=== PATIENT | male | born 1940 | race Caucasian/White ===

== ENCOUNTER 2021-09-26 17:33 | Inpatient (IN) | payer MEDICARE ==
[~2021-09-26] VITALS: Ht 170.2 cm; Wt 90.7 kg
[2021-09-26 18:12] LABS: HEMATOCRIT 24.4 % (36.7-47.1); MEAN CORPUSCULAR HEMOGLOBIN 31.3 uug (23.8-33.4); MEAN CORPUSCULAR VOLUME 89.7 fL (73.0-96.2); PLATELET COUNT (AUTO) 151 K/uL (152-348)
[2021-09-26 18:24] LABS: ALANINE AMINOTRANSFERASE 31 U/L (16-63); ALKALINE PHOSPHATASE 131 U/L (50-136); ASPARTATE AMINOTRANSFERASE 23 U/L (15-37); BILIRUBIN,TOTAL 0.8 mg/dL (0.2-1.0); CARBON DIOXIDE 28 mmol/L (21-32); CHLORIDE 125 mmol/L (98-107); CREATININE 1.7 mg/dL (0.6-1.3); GLUCOSE 92 mg/dL (74-106); POTASSIUM 3.2 mmol/L (3.5-5.1); TOTAL PROTEIN, SERUM 6.5 g/dL (6.4-8.2); UREA NITROGEN, BLOOD 45 mg/dL (7-18)
[2021-09-26] MEDS ORDERED: MAGNESIUM HYDROXIDE 30 ML LIQUID UDC PO PRN (18:45)
[2021-09-26] MEDS ORDERED: ACETAMINOPHEN 325 MG TABLET PO PRN (18:45)
[2021-09-26] MEDS ORDERED: IV NORMAL SALINE 1000 ML BAG IV ONE (18:45)
[2021-09-26] MEDS ORDERED: ONDANSETRON 4 MG/2 ML VIAL IV PRN (18:45)
--- NOTE | 2021-09-26 18:45 | NUR ---
Inserted nathan 16f nathan catheter using aseptic technique. Drained approximately 1500 ml dark, iced tea colored urine. about 15 minutes after insertion.
[2021-09-26 18:48] LABS: *BILIRUBIN,URIN 1+ (NEGATIVE); *BLOOD, URINE NEGATIVE (NEGATIVE); *CLARITY,URINE CLEAR (CLEAR); *COLOR,URINE DARK YELLOW (YELLOW); *KETONES,URINE NEGATIVE (NEGATIVE); *UROBILINOGEN,URINE 0.2 E.U./dl (NORMAL); LEUKOCYTE ESTERASE ,URINE NEGATIVE (NEGATIVE); NITRITE, URINE NEGATIVE (NEGATIVE); UGLUCOSE NEGATIVE (NEGATIVE)
[2021-09-26] MEDS ORDERED: GUAI-1197 PO (19:43)
[2021-09-26] MEDS ORDERED: FINA5TAB11 PO (19:43)
[2021-09-26] MEDS ORDERED: B CO1TAB6 PO (19:43)
[2021-09-26] MEDS ORDERED: ALLO100T56 PO (19:43)
[2021-09-26] MEDS ORDERED: CARV12.52 PO (19:43)
[2021-09-26] MEDS ORDERED: MULT-594 PO (19:43)
[2021-09-26] MEDS ORDERED: HYDR100T27 PO (19:43)
[2021-09-26] MEDS ORDERED: LOSA100T3 PO (19:43)
[2021-09-26] MEDS ORDERED: CLON0.2T PO (19:43)
[2021-09-26] MEDS ORDERED: FURO20TA4 PO (19:43)
[2021-09-26] MEDS ORDERED: ATOR40TA PO (19:43)
[2021-09-26] MEDS ORDERED: CLOP75TA15 PO (19:43)
[2021-09-26] MEDS ORDERED: ISOS20TA8 PO (19:43)
[2021-09-26] MEDS ORDERED: BISA10SU61 RC (19:43)
[2021-09-26] MEDS ORDERED: TRIA15CR2 TP (19:49)
[2021-09-26] MEDS ORDERED: TERA2CAP4 PO (19:49)
[2021-09-26] MEDS ORDERED: POTA10CA43 PO (19:49)
[2021-09-26] MEDS ORDERED: EPOE1VIA12 SQ (19:49)
[2021-09-26] MEDS ORDERED: NIAC500T2 PO (19:49)
[2021-09-26] MEDS ORDERED: AMLO10TA4 PO (19:49)
[2021-09-26] MEDS: ENOXAPARIN SODIUM 40 MG/0.4 ML DISP.SYRIN SQ SCH (21:00)
--- NOTE | 2021-09-26 21:25 | NUR ---
Patient to be scanned (CTA Brain, CT Neck w/o contrast) tomorrow morning. Per Phone call Kimberly Talbert. Patient to be hydrated via IV drip overnight to ease lab values to be able to do the CTA Brain. BUN 45 CRE 1.7 GFR 41
--- NOTE | 2021-09-26 21:25 | NUR ---
Report given to Oumar ROMANO
--- NOTE | 2021-09-26 21:29 | NUR ---
instructions via notes about CTA Brain and CT Neck w/o communicated to JUAN ANTONIO Chase by Telephone
[2021-09-26 22:00] VITALS: BP 170/60
--- NOTE | 2021-09-26 22:02 | NUR ---
PT TAKEN TO ROOM 312 VIA GOURNEY WITH ALL BELONGINGS.
[2021-09-26 22:13] VITALS: BP 170/60
--- NOTE | 2021-09-26 22:32 | NUR ---
Admitted patient to Tele unit from ER via carlos enrique Eng[facility] and hypernatremia under the care of CONNER Fajardo.Patient awake non verbal but able to follow simple commands.On RA, no resp distress. Iv on left wrist 22g infiltrated. Dc'D IV and inserted new IV line on right hand 22 g patent and intact.Adm. KCL 10 meQ IV as ordered no a/r noted.Morrell catheter in place noted with hematuria. N.P Scotty notified with order to hold lovenox for now.Notified CONNER Fajardo also for elevated BP with new order received . Hydralazine IV given .Patient NSR on tele. SAfety measures in place. Call light with in reach.Will continue to monitor.
[2021-09-26] MEDS: IV D5W 1000ML 1,000 ML IV PRN (22:37)
[2021-09-26] MEDS: POTASSIUM CHLORIDE 50 ML IV SCH ×3 (22:42→23:54)
[2021-09-26] MEDS: hydrALAZINE HCL 20 MG/1 ML VIAL IV PRN (23:15)
[2021-09-27] MEDS: POTASSIUM CHLORIDE 50 ML IV SCH ×4 (00:59→20:38)
[2021-09-27 04:00] VITALS: BP 176/60
[2021-09-27] MEDS: hydrALAZINE HCL 20 MG/1 ML VIAL IV PRN ×3 (04:57→21:34)
[2021-09-27 05:58] VITALS: BP 150/64
--- NOTE | 2021-09-27 06:18 | NUR ---
Patient slept well in no distress noted. BP elevated. Asymptomatic.Hydralazine IV 2x given. BP went down to 150/64.Iv intact on right hand with IVF infusing well. Remains NPO.NSR on Tele.All needs anticipated and met accordingly. Call light with in reach.
[2021-09-27 06:42] LABS: HEMATOCRIT 22.3 % (36.7-47.1); MEAN CORPUSCULAR HEMOGLOBIN 31.8 uug (23.8-33.4); MEAN CORPUSCULAR VOLUME 88.4 fL (73.0-96.2); PLATELET COUNT (AUTO) 135 K/uL (152-348)
[2021-09-27 06:54] LABS: CHOLESTEROL 138 mg/dL (<200); HDL CHOLESTEROL 33 mg/dL (40-60); TRIGLYCERIDES 148 MG/DL (30-150)
[2021-09-27 06:56] LABS: CARBON DIOXIDE 28 mmol/L (21-32); CHLORIDE 124 mmol/L (98-107); CREATININE 1.5 mg/dL (0.6-1.3); GLUCOSE 127 mg/dL (74-106); MAGNESIUM 2.9 mg/dL (1.8-2.4); PHOSPHOROUS 3.7 mg/dL (2.5-4.9); POTASSIUM 3.2 mmol/L (3.5-5.1); UREA NITROGEN, BLOOD 39 mg/dL (7-18)
--- NOTE | 2021-09-27 07:22 | NUR ---
Received NA 160 result and notified Prosper Fajardo.Endorsed to morning shift.
--- NOTE | 2021-09-27 07:30 | NUR ---
Awake, confused, non verbal, pulled out saline lock, telemetry, disrobing. Reoriented, redirected, repositioned comfortably. Bed alarm on. NPO maintained
[2021-09-27] MEDS ORDERED: POTASSIUM CHLORIDE 50 ML IV SCH (09:15)
[2021-09-27] MEDS: HALOPERIDOL LACTATE 5 MG/1 ML VIAL IM PRN ×2 (09:35→18:28)
--- NOTE | 2021-09-27 09:35 | NUR ---
Continued to be agitated, restless, climbing out of bed, disrobing. Haldol IM given as ordered.
[2021-09-27 11:37] VITALS: BP 136/61
[2021-09-27 12:22] LABS: *BILIRUBIN,URIN 1+ (NEGATIVE); *BLOOD, URINE 3+ (NEGATIVE); *CLARITY,URINE TURBID (CLEAR); *COLOR,URINE RED (YELLOW); *KETONES,URINE TRACE (NEGATIVE); LEUKOCYTE ESTERASE ,URINE NEGATIVE (NEGATIVE); NITRITE, URINE NEGATIVE (NEGATIVE); PH,URINE 5.5 (5.0-8.0); UGLUCOSE NEGATIVE (NEGATIVE)
[2021-09-27] MEDS: ISOSORBIDE DINITRATE 20 MG TABLET PO SCH ×2 (13:00→16:59)
[2021-09-27] MEDS: CLONIDINE HCL 0.2 MG TABLET PO SCH ×2 (13:27→21:27)
--- NOTE | 2021-09-27 13:35 | NUR ---
Calm and resting comfortably, after bed bath. ST eval done, not safe with po, maintained on NPO.
[2021-09-27 14:35] LABS: *CREATININE,URINE 86.1 mg/dL (30-125); *URINE TOTAL PROTEIN RANDOM 313.5 mg/dL (<150/24HR)
[2021-09-27 15:12] VITALS: BP 166/62
--- NOTE | 2021-09-27 16:10 | NUR ---
Midline not placed. Attempted again peripheral line to Right hand. BP elevated, Hydralazine IV given as ordered. KCL iv started as ordered
[2021-09-27] MEDS: CARVEDILOL 12.5 MG TABLET PO SCH (17:00)
[2021-09-27 17:25] LABS: BACTERIA,URINE NONE SEEN /HPF (NONE SEEN); RBC,URINE TNTC /HPF (0-3); SQUAMOUS EPITHELIAL CELL,UR FEW /HPF (NONE SEEN); WBC,URINE 0-3 /HPF (0-3)
--- NOTE | 2021-09-27 18:30 | NUR ---
Restless, agitated, disrobing, climbing out of bed. Haldol PRN given. Repositioned comfortably in bed.
[2021-09-27 20:07] VITALS: BP 167/71
[2021-09-27] MEDS: ENOXAPARIN SODIUM 40 MG/0.4 ML DISP.SYRIN SQ SCH (20:28)
[2021-09-27] MEDS: ATORVASTATIN 40 MG TABLET PO SCH (20:48)
--- NOTE | 2021-09-27 21:48 | NUR ---
Received resident asleep on bed with no respiratory distress noted, easily arousable for care. and daughter at bedside. Pt on NPO, explained to family and verbalized understanding. Started last bag of KCl on R hand, patent and intact. Still for midline. Assisted pt in turning and repositioning. Oral care provided. FC still draining with dark reddish urine. No s/sx of pain and discomfort noted. All needs attended. Call light placed within reach. Will continue to monitor.
[2021-09-27] MEDS: IV D5W 1000ML 1,000 ML IV PRN (22:26)
[2021-09-28 00:05] VITALS: BP 117/54
[2021-09-28 04:05] VITALS: BP 129/62
[2021-09-28] MEDS: CLONIDINE HCL 0.2 MG TABLET PO SCH ×3 (05:55→21:12)
--- NOTE | 2021-09-28 06:25 | NUR ---
Pt slept intermittently throughout the night, easily arousable for care, non-verbal. IV access on R hand and JESSIE midline, patent and intact. DC Tele. All needs attended. Call light placed within reach. Will endorse to next shift.
[2021-09-28 07:01] LABS: MEAN CORPUSCULAR HEMOGLOBIN 32.2 uug (23.8-33.4); MEAN CORPUSCULAR VOLUME 89.1 fL (73.0-96.2); PLATELET COUNT (AUTO) 137 K/uL (152-348)
[2021-09-28 07:15] LABS: HEMATOCRIT 20.9 % (36.7-47.1)
[2021-09-28 07:20] LABS: ALANINE AMINOTRANSFERASE 26 U/L (16-63); ALKALINE PHOSPHATASE 118 U/L (50-136); ASPARTATE AMINOTRANSFERASE 18 U/L (15-37); BILIRUBIN,TOTAL 0.7 mg/dL (0.2-1.0); CARBON DIOXIDE 28 mmol/L (21-32); CHLORIDE 123 mmol/L (98-107); CREATINE KINASE, TOTAL 67 U/L (39-308); CREATININE 1.5 mg/dL (0.6-1.3); GLUCOSE 121 mg/dL (74-106); MAGNESIUM 2.4 mg/dL (1.8-2.4); PHOSPHOROUS 3.1 mg/dL (2.5-4.9); TOTAL PROTEIN, SERUM 5.7 g/dL (6.4-8.2); UREA NITROGEN, BLOOD 31 mg/dL (7-18)
[2021-09-28] MEDS: CARVEDILOL 12.5 MG TABLET PO SCH ×2 (08:28→18:00)
[2021-09-28] MEDS: ISOSORBIDE DINITRATE 20 MG TABLET PO SCH ×3 (08:28→17:00)
[2021-09-28] MEDS: ALLOPURINOL 100 MG TABLET PO SCH (08:28)
[2021-09-28] MEDS: FINASTERIDE 5 MG TABLET PO SCH (08:28)
[2021-09-28] MEDS: AMLODIPINE 10 MG TABLET PO SCH (08:29)
[2021-09-28] MEDS: HALOPERIDOL LACTATE 5 MG/1 ML VIAL IM PRN (08:29)
[2021-09-28] MEDS ORDERED: POTASSIUM CHLORIDE 10 MEQ TAB.PRT.SR PO ONE (09:15)
[2021-09-28] MEDS ORDERED: PROPOFOL 200 MG/20 ML BOTTLE ONE (10:02)
[2021-09-28] MEDS ORDERED: CEFAZOLIN 1 G VIAL ONE ×2 (10:02)
[2021-09-28 11:04] VITALS: BP 144/42
[2021-09-28 11:30] VITALS: BP 141/72
[2021-09-28] MEDS ORDERED: POTASSIUM CHLORIDE 20 MEQ TAB.PRT.SR PO ONE (12:00)
[2021-09-28 15:30] VITALS: BP 137/80
[2021-09-28] MEDS: IV D5W 1000ML 1,000 ML IV PRN (18:06)
--- NOTE | 2021-09-28 19:00 | NUR ---
Received on bed, with the at the bedside, not in labored breathing, alert, no clear verbal response, aphasic. Safety precautions provided. On NPO.
[2021-09-28] MEDS ORDERED: BISACODYL 10 MG SUPP.RECT RC PRN (19:15)
[2021-09-28 20:37] VITALS: BP 162/59
[2021-09-28] MEDS: ATORVASTATIN 40 MG TABLET PO SCH (21:00)
[2021-09-28] MEDS: ENOXAPARIN SODIUM 40 MG/0.4 ML DISP.SYRIN SQ SCH (21:08)
--- NOTE | 2021-09-29 03:30 | NUR ---
for EGD with PEG tube insertion. Seen by anesthesiologist yesterday with order to keep potassium level above 3. Informed Dr Gaxiola, with order Potassium 40mEq IV, carried out and given as ordered (4 bags 10meq/bag). To check labs in the morning.
[2021-09-29] MEDS: POTASSIUM CHLORIDE 50 ML IV SCH ×6 (03:40→11:51)
[2021-09-29 04:32] VITALS: BP 123/63
[2021-09-29] MEDS: CLONIDINE HCL 0.2 MG TABLET PO SCH ×3 (06:00→22:00)
--- NOTE | 2021-09-29 06:08 | NUR ---
Clonidine not given patient on NPO, HR- 60/min
--- NOTE | 2021-09-29 06:30 | NUR ---
Last bag of potassium still ongoing, endorsed to morning shift.
--- NOTE | 2021-09-29 06:37 | NUR ---
Patient slept well within the shift, no signs distress noted, Suppository was given as ordered, no bowel movement at this time. For Possible PEG tube insertion today. Patient in fair condition.
--- NOTE | 2021-09-29 07:00 | NUR ---
Called patient`s daughter Karla Vital, phone number [phone] and patient`s phone number [phone]. No answer, leave a message to call back the unit regarding the consent for the PEG tube insertion will be done at 0900 and the anesthesiologist will call by 0830 for the consent .
[2021-09-29 07:05] LABS: MEAN CORPUSCULAR HEMOGLOBIN 31.8 uug (23.8-33.4); MEAN CORPUSCULAR VOLUME 88.5 fL (73.0-96.2); PLATELET COUNT (AUTO) 114 K/uL (152-348)
[2021-09-29 07:21] LABS: HEMATOCRIT 19.2 % (36.7-47.1)
[2021-09-29 07:25] LABS: NEUTROPHILS % (MANUAL) 0 % (42-75)
[2021-09-29 08:12] LABS: CREATININE 1.3 mg/dL (0.6-1.3); MAGNESIUM 2.3 mg/dL (1.8-2.4); PHOSPHOROUS 3.5 mg/dL (2.5-4.9); POTASSIUM 3.4 mmol/L (3.5-5.1)
[2021-09-29] MEDS ORDERED: hydrALAZINE HCL 20 MG/1 ML VIAL ONE (10:00)
[2021-09-29] MEDS: ALLOPURINOL 100 MG TABLET PO SCH (11:48)
[2021-09-29] MEDS: ISOSORBIDE DINITRATE 20 MG TABLET PO SCH ×3 (11:48→17:00)
[2021-09-29] MEDS: FINASTERIDE 5 MG TABLET PO SCH (11:48)
[2021-09-29] MEDS: CARVEDILOL 12.5 MG TABLET PO SCH ×2 (11:49→18:00)
[2021-09-29] MEDS: AMLODIPINE 10 MG TABLET PO SCH (11:49)
[2021-09-29 12:00] VITALS: BP 133/65
--- NOTE | 2021-09-29 12:20 | NUR ---
returned back from surgery with new peg in place with abd binder. resume previous orders. ok to give meds via gt start formula in the am. gt sit intact
[2021-09-29 16:00] VITALS: BP 101/41
--- NOTE | 2021-09-29 20:00 | NUR ---
Received patient in bed asleep, but arousable, hob elevated, abdominal binder in place, GT in place patent. Patient on iv hydration, no feeding at this time, cont to monitor, will medicate for pain as needed. cont to monitor.
[2021-09-29] MEDS: ATORVASTATIN 40 MG TABLET PO SCH (20:41)
[2021-09-29] MEDS: ENOXAPARIN SODIUM 40 MG/0.4 ML DISP.SYRIN SQ SCH (20:42)
[2021-09-29] MEDS: IV D5W 1000ML 1,000 ML IV PRN (22:00)
--- NOTE | 2021-09-29 22:00 | NUR ---
Blood transfusion not done at this time due to no available staff to release the blood, per lab staff, RN cigar making machine supervisor aware.
[2021-09-29 22:33] VITALS: BP 100/45
[2021-09-30] VITALS (11 sets, daily range): BP systolic 115–134; BP diastolic 40–86
--- NOTE | 2021-09-30 02:29 | NUR ---
Patient moving his left hand multiple attempts on removing abdominal binder, reorient patient but not effective, attend all need, with order to place hand mittens on left hand to prevent on pulling out abdominal then the new PEG. cont to monitor.
[2021-09-30] MEDS: CLONIDINE HCL 0.2 MG TABLET PO SCH ×2 (06:00→14:14)
--- NOTE | 2021-09-30 06:11 | NUR ---
Patient eyes close but response to tactile and painful stimuli, turn and reposition, noted with 200cc urine in with dark johnnie color, abdomen soft to touch. mittens in place, check for placement and circulations, GT intact, no bleeding noted, abdominal binder in place, cont to monitor.
[2021-09-30 07:14] LABS: MEAN CORPUSCULAR HEMOGLOBIN 31.8 uug (23.8-33.4); MEAN CORPUSCULAR VOLUME 88.1 fL (73.0-96.2); PLATELET COUNT (AUTO) 120 K/uL (152-348)
[2021-09-30 07:28] LABS: CREATININE 1.2 mg/dL (0.6-1.3); MAGNESIUM 2.1 mg/dL (1.8-2.4); PHOSPHOROUS 3.3 mg/dL (2.5-4.9)
[2021-09-30 08:05] LABS: HEMATOCRIT 18.7 % (36.7-47.1)
[2021-09-30] MEDS: ALLOPURINOL 100 MG TABLET PO SCH (08:33)
[2021-09-30] MEDS: FINASTERIDE 5 MG TABLET PO SCH (08:33)
[2021-09-30] MEDS: CARVEDILOL 12.5 MG TABLET PO SCH (08:34)
[2021-09-30] MEDS: ISOSORBIDE DINITRATE 20 MG TABLET PO SCH ×2 (08:34→14:14)
[2021-09-30] MEDS: AMLODIPINE 10 MG TABLET PO SCH (08:34)
[2021-09-30] MEDS ORDERED: POTASSIUM CHLORIDE 50 ML IV SCH (10:00)
[2021-09-30] MEDS: IV D5W 1000ML 1,000 ML IV PRN (10:23)
[2021-09-30] MEDS ORDERED: POTASSIUM CHLORIDE 20 MEQ POWDER PACKET PO ONE (11:00)
[2021-09-30] MEDS ORDERED: POTASSIUM CHLORIDE 20 MEQ POWDER PACKET GT ONE (11:00)
--- NOTE | 2021-09-30 11:00 | NUR ---
noted with iv right hand infiltrated. iv midline on hali also unable to be flushed. both iv lines removed. able to insert 20g on left wrist. 2nd bag of potassium infusing, per food counter attendant beth she will dc iv potassium to replace via gtube. pharmacy aware.
--- NOTE | 2021-09-30 11:58 | NUR ---
started blood transfusion, vs prior to transfusion noted. monitored for 15 minutes no ss of adverse reactions noted. hob kept elevated. no ss of pain or sob noted. cont to monitor.
--- NOTE | 2021-09-30 15:17 | NUR ---
alert but non verbal not oriented withdraws to pain. no ss of sob or pain at this time. nathan catheter with johnnie colored urine. peg tube intact and patent no residual. mittens on for pulling on lines and tubes, reoriented prn. abdominal binder on due to pulling tubes. iv is intact. changed and repositioned. needs attended. call light in reach.
[2021-09-30] MEDS ORDERED: MAGNESIUM HYDROXIDE 30 ML LIQUID UDC GT PRN (17:32)
[2021-09-30] MEDS ORDERED: AMLODIPINE 10 MG TABLET GT SCH (17:32)
[2021-09-30] MEDS: CARVEDILOL 12.5 MG TABLET GT SCH (17:34)
[2021-09-30] MEDS: JEVITY 1.2 1000 ML LIQUID GT PRN (17:36)
--- NOTE | 2021-09-30 19:08 | NUR ---
started on tube feeding jevity at 20cc/hr. hob kept elevated for aspiration precaution. no nausea vomiting or diarrhea noted. spoke with dtr ladi earlier this afternoon and was updated.
[2021-09-30] MEDS: ATORVASTATIN 40 MG TABLET GT SCH (20:46)
[2021-09-30] MEDS: ENOXAPARIN SODIUM 40 MG/0.4 ML DISP.SYRIN SQ SCH (20:47)
[2021-09-30] MEDS: CLONIDINE HCL 0.2 MG TABLET GT SCH (22:00)
[2021-10-01] MEDS: IV D5W 1000ML 1,000 ML IV PRN (03:14)
--- NOTE | 2021-10-01 04:06 | NUR ---
s/p PEG placement. No residual. No nausea or vomiting. Increased GTF rate to 30 ml/hr. Goal is 70ml/hr. Will continue to monitor residual.
[2021-10-01 04:18] VITALS: BP 150/68
[2021-10-01 06:13] LABS: HEMATOCRIT 22.8 % (36.7-47.1); MEAN CORPUSCULAR HEMOGLOBIN 31.4 uug (23.8-33.4); MEAN CORPUSCULAR VOLUME 87.8 fL (73.0-96.2); PLATELET COUNT (AUTO) 130 K/uL (152-348)
[2021-10-01] MEDS: CLONIDINE HCL 0.2 MG TABLET GT SCH ×2 (06:14→15:11)
[2021-10-01 06:31] LABS: CREATININE 1.1 mg/dL (0.6-1.3); MAGNESIUM 2.1 mg/dL (1.8-2.4); PHOSPHOROUS 3.1 mg/dL (2.5-4.9); POTASSIUM 3.4 mmol/L (3.5-5.1)
[2021-10-01] MEDS: IV D5LR 1,000 ML IV PRN ×2 (07:56→18:44)
[2021-10-01] MEDS: CARVEDILOL 12.5 MG TABLET GT SCH ×2 (08:27→18:36)
[2021-10-01] MEDS: ISOSORBIDE DINITRATE 20 MG TABLET GT SCH ×3 (08:27→16:53)
[2021-10-01] MEDS: ALLOPURINOL 100 MG TABLET GT SCH (08:27)
[2021-10-01] MEDS ORDERED: DOXAZOSIN 1 MG TABLET GT SCH (09:00)
[2021-10-01] MEDS ORDERED: POTASSIUM CHLORIDE 20 MEQ TAB.PRT.SR PO ONE (09:30)
[2021-10-01] MEDS ORDERED: POTASSIUM CHLORIDE 20 MEQ POWDER PACKET GT ONE (10:00)
[2021-10-01 10:06] LABS: ALBUMIN 2.5 g/dL (2.9-4.4); ALPHA-1-GLOBULIN 0.3 g/dL (0.0-0.4); ALPHA-2-GLOBULIN 0.7 g/dL (0.4-1.0); BETA GLOBULIN 0.7 g/dL (0.7-1.3); GLOBULIN, TOTAL 2.6 g/dL (2.2-3.9); M-SPIKE Not Observed g/dL (Not Observed)
--- NOTE | 2021-10-01 10:55 | NUR ---
awake, non verbal not oriented. comfortable on room air. gt intact and patent no residual noted. received on jevity 35 cc/hr tolerated. no episodes of nvd noted. due meds given and tolerated. abdominal binder and mittens on due to pulling. reoriented prn. needs attended. safety measures on. kept comfortable.
[2021-10-01 11:57] VITALS: BP 134/56
--- NOTE | 2021-10-01 12:52 | NUR ---
at 1130 increased gt feeding to 45cc/hr. at this time patient is tolerating the feeding no nausea or vomiting. hob kept elevated for aspiration precautions. he is comfortably resting.
[2021-10-01 16:06] VITALS: BP 104/51
--- NOTE | 2021-10-01 18:44 | NUR ---
received order from rita campos to remove nathan catheter and make sure patient voids within 6 hrs and let her know. order is carried out.
--- NOTE | 2021-10-01 18:58 | NUR ---
removed nathan catheter tolerated well no bleeding noted. output today is 1100. will endorsed to oncoming shift. Addendum: 10/01/21 at 1859 by DON EAST RN family at bedside and aware. no complaints at this time
[2021-10-01] MEDS ORDERED: BISACODYL 10 MG SUPP.RECT RC ONE (19:15)
--- NOTE | 2021-10-01 19:30 | NUR ---
Received pt awake . Family at bedside. Pt in no acute distress. Gtube feeding tolerating. Pt observed with phlegm and can't cough it out. Safety and comfort provided. Will continue to monitor.
--- NOTE | 2021-10-01 20:00 | NUR ---
Notify rhinestone setter regarding pt has phlegm. ordered Robitussin Plain sugar free 200mg po q6hprn.
[2021-10-01] MEDS: ATORVASTATIN 40 MG TABLET GT SCH (20:29)
[2021-10-01] MEDS: ENOXAPARIN SODIUM 40 MG/0.4 ML DISP.SYRIN SQ SCH (20:30)
[2021-10-01] MEDS: CLOPIDOGREL 75 MG TABLET PO SCH (20:30)
[2021-10-01] MEDS: GUAIFENESIN SUGAR FREE 100 MG/5 ML UDC PO PRN (20:35)
[2021-10-01 20:50] VITALS: BP 128/63
[2021-10-01] MEDS: TERAZOSIN 1 MG CAPSULE GT SCH (22:18)
[2021-10-02] MEDS: ACETAMINOPHEN 325 MG TABLET GT PRN ×2 (00:07→21:23)
[2021-10-02] MEDS: HALOPERIDOL LACTATE 5 MG/1 ML VIAL IM PRN (00:10)
--- NOTE | 2021-10-02 00:10 | NUR ---
At 0010H pt given Haldol Inj 0.5mg prn because of anxiety, restlessness, trying to take off his mitten. Safety and comfort provided. Will continue to monitor.
--- NOTE | 2021-10-02 02:01 | NUR ---
At 0200H Pt vomited when we tried to repositioned the pt. Make sure pt head of the bed elevated. Hold the gtube feeding . Vital signs taken. Pt in no acute distress. Safety and comfort provided. Will continue to monitor.
[2021-10-02 02:03] VITALS: BP 120/75
--- NOTE | 2021-10-02 02:22 | NUR ---
Zofran inj 4mg prn given at 0209H for emesis one time. Pt tolerated it well. Will continue to monitor.
[2021-10-02 04:10] VITALS: BP 136/60
--- NOTE | 2021-10-02 05:46 | NUR ---
Pt slept intermittently. Pt in no acute distress. Iv intact. Prescribed medication given and pt tolerated it well. Pt gtube feeding held because pt vomited. After Zofran medication given pt not vomited anymore. Pt bladder scan is more than 248ml. Safety and comfort provided. All needs are met.Will endorse to incoming nurse for continuity of care.
[2021-10-02 06:17] LABS: HEMATOCRIT 21.3 % (36.7-47.1); MEAN CORPUSCULAR HEMOGLOBIN 31.5 uug (23.8-33.4); MEAN CORPUSCULAR VOLUME 87.3 fL (73.0-96.2); PLATELET COUNT (AUTO) 133 K/uL (152-348)
[2021-10-02 06:30] LABS: CREATININE 1.1 mg/dL (0.6-1.3); PHOSPHOROUS 3.1 mg/dL (2.5-4.9)
[2021-10-02 07:05] LABS: POTASSIUM 3.6 mmol/L (3.5-5.1)
--- NOTE | 2021-10-02 08:06 | NUR ---
Endorsed by RN patient did not void, condom cath intact with no output. Patient alert, trying to talk pulling on mittens. Hob elevated. Intermittent cough with phlegm unable to expectorate. No nausea or vomiting noted. No pain or sob noted. Bladder scan performed noted 460ml. Inserted nathan catheter got output 325ml at this time. Restarted tube feeding at 40ml/hr. Kept comfortable. Safety measures in place. Will cont to monitor for tolerance. CONNER Quinn is aware.
[2021-10-02] MEDS: ALLOPURINOL 100 MG TABLET GT SCH (08:12)
[2021-10-02] MEDS: CARVEDILOL 12.5 MG TABLET GT SCH ×2 (08:13→17:39)
[2021-10-02] MEDS: CLOPIDOGREL 75 MG TABLET PO SCH (08:13)
[2021-10-02] MEDS ORDERED: EPOETIN ALFA-EPBX 10,000 UNIT/ML VIAL SQ SCH (09:00)
[2021-10-02 11:47] VITALS: BP 156/64
[2021-10-02 14:49] LABS: IRON, SERUM 29 ug/dL (50-175)
[2021-10-02 15:02] LABS: FERRITIN 345 ng/mL (26-388)
--- NOTE | 2021-10-02 15:54 | NUR ---
informed sap basis administrator martinez patient's nathan catheter noted with hematuria new order for ua received. obtained urine and sent to lab.
[2021-10-02 16:15] LABS: *BILIRUBIN,URIN 1+ (NEGATIVE); *BLOOD, URINE 3+ (NEGATIVE); *CLARITY,URINE CLEAR (CLEAR); *COLOR,URINE YELLOW (YELLOW); *KETONES,URINE NEGATIVE (NEGATIVE); LEUKOCYTE ESTERASE ,URINE 1+ (NEGATIVE); NITRITE, URINE NEGATIVE (NEGATIVE); PH,URINE 5.5 (5.0-8.0); UGLUCOSE NEGATIVE (NEGATIVE)
[2021-10-02 16:51] VITALS: BP 133/55
--- NOTE | 2021-10-02 18:29 | NUR ---
awake, agitated at times pulling on tubes. mittens in place, patient tries to remove it. reoriented prn. no ss of pain or sob noted. no episodes of vomiting this shift. remains on 40cc/hr jevity 1.2 tf. hob kept elevated. needs attended.
--- NOTE | 2021-10-02 19:30 | NUR ---
Received pt in no acute distress. Pt iv intact. Morrell catheter intact. Pt had mitten and trying to take off his mitten. Safety and comfort provided. Will continue to monitor.
[2021-10-02 19:59] LABS: BACTERIA,URINE FEW /HPF (NONE SEEN); RBC,URINE TNTC /HPF (0-3)
[2021-10-02 20:00] LABS: SQUAMOUS EPITHELIAL CELL,UR NONE SEEN /HPF (NONE SEEN)
[2021-10-02 20:51] VITALS: BP 146/67
[2021-10-02] MEDS: ENOXAPARIN SODIUM 40 MG/0.4 ML DISP.SYRIN SQ SCH (21:00)
[2021-10-02] MEDS: ATORVASTATIN 40 MG TABLET GT SCH (21:00)
[2021-10-02] MEDS ORDERED: ALBUTEROL SULFATE 1.25 MG/3 ML NEBU NEB PRN (21:00)
[2021-10-02] MEDS: TERAZOSIN 1 MG CAPSULE GT SCH (21:01)
--- NOTE | 2021-10-02 21:02 | NUR ---
as per DR. Finch hold dose of LOvenox.
[2021-10-02] MEDS: GUAIFENESIN SUGAR FREE 100 MG/5 ML UDC PO PRN (21:23)
[2021-10-02 22:02] LABS: *OCCULT BLOOD STOOL NEGATIVE (NEGATIVE)
[2021-10-03 04:44] VITALS: BP 151/60
--- NOTE | 2021-10-03 06:04 | NUR ---
Pt slept intermittently. Pt Prescribed medication given and pt tolerated it well. Pt tolerating gtube feeding. No residual noted. Pt observed coughing and felt better after breathing treatment . Iv intact. Morrell intact and draining tea colored urine. Pt had 2 bowel movement. Safety and comfort provided . All needs are met. Will endorse to incoming nurse for continuity of care.
[2021-10-03 06:29] LABS: MEAN CORPUSCULAR HEMOGLOBIN 31.9 uug (23.8-33.4); MEAN CORPUSCULAR VOLUME 88.6 fL (73.0-96.2); PLATELET COUNT (AUTO) 130 K/uL (152-348)
[2021-10-03 06:51] LABS: CREATININE 1.1 mg/dL (0.6-1.3); MAGNESIUM 1.9 mg/dL (1.8-2.4); POTASSIUM 3.7 mmol/L (3.5-5.1)
[2021-10-03 07:09] LABS: THYROID STIMULATING HORMONE 4.5 mIU/mL (0.358-3.740)
[2021-10-03] MEDS: CARVEDILOL 12.5 MG TABLET GT SCH ×2 (09:03→17:38)
[2021-10-03] MEDS: CLOPIDOGREL 75 MG TABLET PO SCH (09:03)
[2021-10-03] MEDS: ALLOPURINOL 100 MG TABLET GT SCH (09:03)
[2021-10-03 09:05] VITALS: BP 160/59
[2021-10-03 11:18] VITALS: BP 152/59
[2021-10-03 15:48] VITALS: BP 144/55
[2021-10-03] MEDS ORDERED: AMLODIPINE 5 MG TABLET PO SCH (17:00)
--- NOTE | 2021-10-03 18:45 | NUR ---
Pt had no acute events during shift. Family at bedside for most of shift, refused for feeding to be increased due to pt having nausea/vomiting previous night. Tolerated feeding well during shift, no nausea vomiting and no residual volume. Pt continues to have hematuria, stool OB was negative. MD aware. Per MD possible discharge tomorrow if family agreeable and facility accepts. Will endorse to night cleaner.
--- NOTE | 2021-10-03 19:30 | NUR ---
Received pt in no acute distress. Iv intact. Morrell catheter intact draining hematuria.Tolerating gtube feeding at 50ml/hr. No residual. Safety and comfort provided, Will continue to monitor.
[2021-10-03 20:00] VITALS: BP 174/69
--- NOTE | 2021-10-03 20:43 | NUR ---
Hold Lovenox as per Dr. Finch.
[2021-10-03] MEDS ORDERED: TAMSULOSIN HCL 0.4 MG CAP.SR.24H PO SCH (21:00)
[2021-10-03] MEDS: ENOXAPARIN SODIUM 40 MG/0.4 ML DISP.SYRIN SQ SCH (21:00)
[2021-10-03] MEDS: AMLODIPINE 5 MG TABLET PO SCH (21:09)
[2021-10-03] MEDS: ATORVASTATIN 40 MG TABLET GT SCH (21:09)
[2021-10-03] MEDS: GUAIFENESIN SUGAR FREE 100 MG/5 ML UDC PO PRN (21:16)
[2021-10-03] MEDS: ACETAMINOPHEN 325 MG TABLET GT PRN (21:16)
[2021-10-03] MEDS: TERAZOSIN 1 MG CAPSULE GT SCH (21:18)
--- NOTE | 2021-10-03 22:12 | NUR ---
Called family of pt [phone] and talked to pt as they are requesting for update. Pt in no acute distress. Relay the update that pt is in no acute distress.
--- NOTE | 2021-10-03 22:19 | NUR ---
Tylenol 650 mg prn given to pt and Robitussin plain sugar free prn given per nurses assessment pt needed it. Pt tolerated it well. Will continue to monitor.
[2021-10-04 04:00] VITALS: BP 147/62
[2021-10-04] MEDS: JEVITY 1.2 1000 ML LIQUID GT PRN (04:21)
--- NOTE | 2021-10-04 06:10 | NUR ---
Pt slept intermittently. Pt in no acute distress. IV intact and patent.Pt turned and repositioned. Pt tolerating gtube feeding at 55ml/hr. No residual noted. Morrell intact and draining well. Safety and comfort provided. All needs are met. Vital signs within normal limit. Will endorse to incoming nurse for continuity of care.
[2021-10-04 07:45] LABS: HEMATOCRIT 22.7 % (36.7-47.1); MEAN CORPUSCULAR HEMOGLOBIN 31.9 uug (23.8-33.4); MEAN CORPUSCULAR VOLUME 88.1 fL (73.0-96.2); PLATELET COUNT (AUTO) 148 K/uL (152-348)
[2021-10-04 07:57] LABS: POTASSIUM 3.3 mmol/L (3.5-5.1)
[2021-10-04] MEDS: AMLODIPINE 5 MG TABLET PO SCH ×2 (08:43→21:03)
[2021-10-04] MEDS: CARVEDILOL 12.5 MG TABLET GT SCH ×2 (08:44→17:15)
[2021-10-04] MEDS: ALLOPURINOL 100 MG TABLET GT SCH (08:44)
[2021-10-04] MEDS: CLOPIDOGREL 75 MG TABLET GT SCH (08:44)
[2021-10-04] MEDS ORDERED: POTASSIUM CHLORIDE 20 MEQ POWDER PACKET GT ONE (09:30)
[2021-10-04 09:51] LABS: BILIRUBIN,DIRECT 0.2 mg/dL (0.0-0.2); BILIRUBIN,TOTAL 0.3 mg/dL (0.2-1.0); TOTAL PROTEIN, SERUM 5.3 g/dL (6.4-8.2)
[2021-10-04] MEDS: GUAIFENESIN SUGAR FREE 100 MG/5 ML UDC PO PRN (10:26)
--- NOTE | 2021-10-04 10:52 | NUR ---
Pt is cooperative with care, sleeping intermittently. Administered PRN cough medication due to pt having cough. Able to spit up some mucus to clear airway. Will continue to monitor.
[2021-10-04 11:39] VITALS: BP 152/62
--- NOTE | 2021-10-04 18:00 | NUR ---
Pt had elevated BP 172/69, HR 78, administered scheduled coreg. Notified MD of elevated BP, obtained order for hydralazine 10 mg PRN IVP for SBP >160. Will reassess before administering.
[2021-10-04 18:06] VITALS: BP 169/64
[2021-10-04] MEDS ORDERED: hydrALAZINE HCL 20 MG/1 ML VIAL IV PRN (18:45)
--- NOTE | 2021-10-04 19:00 | NUR ---
Reassessed patient, BP now 145/64 HR 71. No longer meets criteria for hydralazine, pt is sleeping in bed, comfort measures provided. Will endorse to night stocker and notify of vitals.
[2021-10-04 20:00] VITALS: BP 120/64
[2021-10-04] MEDS: ENOXAPARIN SODIUM 40 MG/0.4 ML DISP.SYRIN SQ SCH (21:00)
--- NOTE | 2021-10-04 21:00 | NUR ---
Received pt in bed. Awake, alert x 1. On room air, saturating at 94%. with mittens on Left hand and on chest binder. Gtube in place. Gtube clean and dry. Aspiration precaution maintained. HOB elevated at all times. Morrell catheter in place with hematuria. Safety measure placed. Call light within reach. Will continue to monitor.
[2021-10-04] MEDS: ATORVASTATIN 40 MG TABLET GT SCH (21:01)
[2021-10-04] MEDS: TERAZOSIN 1 MG CAPSULE GT SCH (21:02)
[2021-10-04] MEDS: ACETAMINOPHEN 325 MG TABLET GT PRN (21:10)
[2021-10-05] MEDS: JEVITY 1.2 1000 ML LIQUID GT PRN (03:35)
--- NOTE | 2021-10-05 03:35 | NUR ---
PT SLEEPING COMFORTABLY. MO CATH DRAINING WELL. URINE STILL RED IN COLOR. GTUBE INTACT. CHANGED GTUBE DRESSING. ABLE TO TOLERATE FEEDING AT 55 ML/HR, INCREASED FEEDING RATE TO 65 ML/HR MD ORDERED. WILL CONTINUE TO MONITOR.
[2021-10-05 04:00] VITALS: BP 140/60
[2021-10-05 06:32] LABS: CREATININE 0.9 mg/dL (0.6-1.3); POTASSIUM 3.7 mmol/L (3.5-5.1)
[2021-10-05] MEDS: CLOPIDOGREL 75 MG TABLET GT SCH (09:17)
[2021-10-05] MEDS: CARVEDILOL 12.5 MG TABLET GT SCH (09:18)
[2021-10-05] MEDS: AMLODIPINE 5 MG TABLET PO SCH (09:18)
[2021-10-05] MEDS: ALLOPURINOL 100 MG TABLET GT SCH (09:18)
--- NOTE | 2021-10-05 09:26 | NUR ---
Pt is currently sleeping. BP elevated 177/61, administered routine medications, will reassess to determine if PRN needed. Will continue to monitor. Feeding running at 65cc, no residual volume.
[2021-10-05] MEDS ORDERED: CEFTRIAXONE 1 G in IV DEXTROSE 5% 50 ML IV SCH (10:00)
--- NOTE | 2021-10-05 10:36 | NUR ---
Plan is to discharge to [facility], sampler pickup scheduled for 3pm.
--- NOTE | 2021-10-05 11:23 | NUR ---
Pts SBP decreased from 177 to 160, but is still elevated. administered apresoline PRN will reassess.
[2021-10-05 12:11] VITALS: BP 160/61
[2021-10-05 16:15] VITALS: BP 112/34
--- NOTE | 2021-10-05 17:41 | NUR ---
Pt has been discharged to [facility] via ambulance. Picked up around 1735. All discharge education given to pt's family at bedside, personal belongings at hand. IV and ID band removed. Pt's vitals steady in the goal parameter set by . Report called to Nurse DAVID, pt going to bed 68A. Family aware of transfer. Pt will be continuing PO antibiotics and will do bladder training to remove nathan at the facility.
== END 2021-10-05 17:40 | DRG 640 ==
LOC: ER 17:33 → TELE3 20:15 → MEDSURG3 09-28 06:00
PROVIDERS: ADMIT Nurse Practitioner Acute Care; ATTEND Nurse Practitioner Family
PROC: 05H533Z Insertion of Infusion Device into Right Subclavian Vein, Percutaneous Approach (ICD-10-PCS; 2021-09-28)
PROC: B546ZZA Ultrasonography of Right Subclavian Vein, Guidance (ICD-10-PCS; 2021-09-28)
PROC: 0DH68UZ Insertion of Feeding Device into Stomach, Via Natural or Artificial Opening Endoscopic (ICD-10-PCS; principal; 2021-09-29)
PROC: 30233N1 Transfusion of Nonautologous Red Blood Cells into Peripheral Vein, Percutaneous Approach (ICD-10-PCS; 2021-09-30)
PROC: 05H633Z Insertion of Infusion Device into Left Subclavian Vein, Percutaneous Approach (ICD-10-PCS; 2021-10-01)
PROC: B547ZZA Ultrasonography of Left Subclavian Vein, Guidance (ICD-10-PCS; 2021-10-01)
DX: E87.0 Hyperosmolality and hypernatremia (principal); R53.2 Functional quadriplegia; I63.232 Cerebral infarction due to unspecified occlusion or stenosis of left carotid arteries; E44.0 Moderate protein-calorie malnutrition; D68.59 Other primary thrombophilia; J98.11 Atelectasis; N17.9 Acute kidney failure, unspecified; I69.351 Hemiplegia and hemiparesis following cerebral infarction affecting right dominant side; I13.0 Hypertensive heart and chronic kidney disease with heart failure and stage 1 through stage 4 chronic kidney disease, or unspecified chronic kidney disease; J90 Pleural effusion, not elsewhere classified; I31.3 Pericardial effusion (noninflammatory); D69.6 Thrombocytopenia, unspecified; D64.9 Anemia, unspecified; E78.5 Hyperlipidemia, unspecified; E86.0 Dehydration; E87.1 Hypo-osmolality and hyponatremia; E88.09 Other disorders of plasma-protein metabolism, not elsewhere classified; K29.70 Gastritis, unspecified, without bleeding; Z20.822 Contact with and (suspected) exposure to COVID-19; Z87.01 Personal history of pneumonia (recurrent); R13.10 Dysphagia, unspecified; R62.7 Adult failure to thrive; N18.9 Chronic kidney disease, unspecified; R53.1 Weakness; I50.9 Heart failure, unspecified; I69.320 Aphasia following cerebral infarction; Z68.31 Body mass index [BMI] 31.0-31.9, adult
CPT/HCPCS: 36415; 51702; 70030-TC; 70450; 71045; 74018; 74150; 76770; 83550; 83735; 83970; 84100; 84132; 84155; 84156; 84165; 84300; 84443; 85025; 85610; 86850; 86900; 86901; 86920; 87086; 93005; 93307; 93880; 94664; 97161; A4663; A6209; G0378; J0360; J0690; J0696; J0885; J1630; J1650; J2405; J3480; J3490; J7040; J7060; J7070; J8499; P9016

== ENCOUNTER 2021-11-08 20:31 | Inpatient (IN) | payer MEDICARE ==
[~2021-11-08] VITALS: Ht 182.9 cm; Wt 77.1 kg
[~2021-11-08 20:31] MED LIST: ALLO100T56 PO; ATOR40TA PO; B CO1TAB6 PO; BISA10SU61 RC; CARV12.52 PO; CLOP75TA15 PO; EPOE1VIA12 SQ; GUAI-1197 GT; MULT-594 GT; NIAC500T2 GT; TERA2CAP4 PO; TRIA15CR2 TP
--- NOTE | 2021-11-08 21:18 | NUR ---
Dr. Hanley at bedside for MSE
--- NOTE | 2021-11-08 21:28 | NUR ---
US at bedside
[2021-11-08 21:31] LABS: HEMATOCRIT 26.8 % (36.7-47.1); MEAN CORPUSCULAR HEMOGLOBIN 31.5 uug (23.8-33.4); MEAN CORPUSCULAR VOLUME 91.4 fL (73.0-96.2); PLATELET COUNT (AUTO) 141 K/uL (152-348)
[2021-11-08 21:37] LABS: CREATININE 0.7 mg/dL (0.6-1.3); POTASSIUM 3.6 mmol/L (3.5-5.1)
[2021-11-08] MEDS ORDERED: PANT40TA49 GT (21:40)
[2021-11-08] MEDS ORDERED: CLON0.1T PO (21:40)
[2021-11-08 21:42] LABS: BILIRUBIN,TOTAL 0.2 mg/dL (0.2-1.0); TOTAL PROTEIN, SERUM 5.7 g/dL (6.4-8.2)
[2021-11-08 22:57] LABS: *BILIRUBIN,URIN 1+ (NEGATIVE); *BLOOD, URINE 3+ (NEGATIVE); *CLARITY,URINE TURBID (CLEAR); *COLOR,URINE Brown (YELLOW); *KETONES,URINE TRACE (NEGATIVE); LEUKOCYTE ESTERASE ,URINE 1+ (NEGATIVE); NITRITE, URINE POSITIVE (NEGATIVE); UGLUCOSE NEGATIVE (NEGATIVE)
[2021-11-08 23:05] LABS: BACTERIA,URINE MANY /HPF (NONE SEEN); RBC,URINE TNTC /HPF (0-3); SQUAMOUS EPITHELIAL CELL,UR MODERATE /HPF (NONE SEEN); WBC,URINE TNTC /HPF (0-3)
[2021-11-09] MEDS ORDERED: CEFTRIAXONE 1 G in IV DEXTROSE 5% 50 ML IV ONE (00:15)
[2021-11-09] MEDS ORDERED: CEFTRIAXONE /D5W 50ML IVPB **ER PYXIS IV ONE (01:06)
--- NOTE | 2021-11-09 02:37 | NUR ---
Pt resting in bed, eyes closed and respirations unlabored and equal. No distress noted at this time.
--- NOTE | 2021-11-09 03:00 | NUR ---
Report given to Elodia ROMANO
[2021-11-09 03:30] VITALS: BP 137/68
--- NOTE | 2021-11-09 03:40 | NUR ---
Admitted this 81 y/o male from ER under the care of Dr. Red. Sinus rhythm on tele with HR 69. Covid-19 positive, droplet isolation precautions observed. In no acute distress. Alert and oriented x 1, aphasic paralyzed on R side. Morrell cath intact draining to tea color urine output. Skin assessment performed. GT intact, no residual. LFA IV access intact and patent. Routine admission care done, plan of care initiated. Needs assessed and attended to. Bed in locked and low position with call light within easy reach.
--- NOTE | 2021-11-09 04:06 | NUR ---
Pt. admitted to Tele room 318, under care of Dr. Red Belongings List completed
[2021-11-09] MEDS ORDERED: ONDANSETRON 4 MG/2 ML VIAL IV PRN (04:15)
[2021-11-09] MEDS ORDERED: OSMOLITE 1.2 CAL 1,000 ML LIQUID GT PRN (04:30)
[2021-11-09] MEDS: PANTOPRAZOLE ORAL SUSPENSION 40 MG SUSPDR.PKT GT SCH (06:22)
[2021-11-09 07:35] LABS: PHOSPHOROUS 4.4 mg/dL (2.5-4.9)
[2021-11-09 08:32] LABS: THYROID STIMULATING HORMONE 5.488 mIU/mL (0.358-3.740)
[2021-11-09] MEDS ORDERED: TERA2CAP4 GT (10:08)
[2021-11-09] MEDS ORDERED: ATOR40TA GT (10:08)
[2021-11-09] MEDS ORDERED: ALLO100T GT (10:08)
[2021-11-09] MEDS ORDERED: BISA10SU61 RC (10:08)
[2021-11-09] MEDS ORDERED: CLON0.1T GT (10:08)
[2021-11-09] MEDS ORDERED: CARV12.5 GT (10:08)
[2021-11-09] MEDS ORDERED: DEXT15DR6 LEFTEYE (10:08)
[2021-11-09] MEDS ORDERED: APIX2.5T GT (10:08)
[2021-11-09] MEDS ORDERED: VITA-287 GT (10:08)
[2021-11-09 12:08] VITALS: BP 145/68
[2021-11-09 16:05] VITALS: BP 141/70
--- NOTE | 2021-11-09 19:00 | NUR ---
Received patient on bed, awake, alert and oriented x2, aphasic, able to understand simple instruction not in respiratory distress, no complaint of pain, with ongoing G-tube feeding osmolite 1.2cal at 65cc/hr with water flushing 250cc every 6hrs as ordered.
[2021-11-09 20:00] VITALS: BP 174/54
[2021-11-09] MEDS: ACETAMINOPHEN 650 MG/20.3 ML LIQUID UDC GT PRN (21:12)
[2021-11-09 22:16] VITALS: BP 141/52
[2021-11-10 00:30] VITALS: BP 135/52
[2021-11-10] MEDS: OSMOLITE 1.2 CAL 1,000 ML LIQUID GT PRN (00:37)
[2021-11-10] MEDS: CEFTRIAXONE 1 G in IV DEXTROSE 5% 50 ML IV SCH (01:03)
[2021-11-10 04:59] VITALS: BP 116/68
--- NOTE | 2021-11-10 05:55 | NUR ---
Slept well within the shift, not in labored breathing, no complaint of pain. Flushing of water via G-tube 250cc given as ordered. Morrell catheter changed as ordered F-16 attached to urine bag.
[2021-11-10] MEDS: PANTOPRAZOLE ORAL SUSPENSION 40 MG SUSPDR.PKT GT SCH (06:06)
[2021-11-10 07:52] LABS: BILIRUBIN,TOTAL 0.1 mg/dL (0.2-1.0); CREATININE 0.7 mg/dL (0.6-1.3); MAGNESIUM 2.1 mg/dL (1.8-2.4); PHOSPHOROUS 4.1 mg/dL (2.5-4.9); POTASSIUM 3.6 mmol/L (3.5-5.1); TOTAL PROTEIN, SERUM 5.5 g/dL (6.4-8.2)
[2021-11-10 07:57] LABS: HEMATOCRIT 26.4 % (36.7-47.1); MEAN CORPUSCULAR VOLUME 90.7 fL (73.0-96.2); PLATELET COUNT (AUTO) 120 K/uL (152-348)
[2021-11-10] MEDS ORDERED: BISACODYL 10 MG SUPP.RECT RC PRN (09:45)
[2021-11-10] MEDS ORDERED: CLONIDINE HCL 0.1 MG TABLET GT PRN (09:45)
[2021-11-10 12:47] VITALS: BP 158/66
[2021-11-10 15:41] VITALS: BP 123/60
[2021-11-10] MEDS ORDERED: NIACIN GT SCH (18:00)
[2021-11-10] MEDS ORDERED: NIACIN 500 MG TABLET GT SCH (18:00)
--- NOTE | 2021-11-10 19:00 | NUR ---
Received patient on bed, awake, alert and oriented x2, aphasic, able to understand simple instructions not in respiratory distress, no complaint of pain, with ongoing G-tube feeding Osmolite 1.2cal at 65cc/hr with water flushing 250cc every 6 hours as ordered.
[2021-11-10 20:00] VITALS: BP 179/51
[2021-11-10] MEDS: APIXABAN 2.5 MG TABLET GT SCH (20:50)
[2021-11-10] MEDS: CARVEDILOL 3.125 MG TABLET PO SCH (20:51)
[2021-11-10] MEDS: TERAZOSIN 1 MG CAPSULE GT SCH (20:51)
[2021-11-10] MEDS: ACETAMINOPHEN 650 MG/20.3 ML LIQUID UDC GT PRN (20:52)
[2021-11-11 00:09] VITALS: BP 147/60
[2021-11-11] MEDS: CEFTRIAXONE 1 G in IV DEXTROSE 5% 50 ML IV SCH (01:15)
[2021-11-11 04:00] VITALS: BP 161/59
[2021-11-11] MEDS: PANTOPRAZOLE ORAL SUSPENSION 40 MG SUSPDR.PKT GT SCH (06:08)
[2021-11-11 06:43] LABS: HEMATOCRIT 27.5 % (36.7-47.1); MEAN CORPUSCULAR HEMOGLOBIN 31.8 uug (23.8-33.4); MEAN CORPUSCULAR VOLUME 90.5 fL (73.0-96.2); PLATELET COUNT (AUTO) 114 K/uL (152-348)
--- NOTE | 2021-11-11 06:59 | NUR ---
Slept well, nt in respiratory distress, Flushing of G-tube done as ordered, Patient in fair condition.
[2021-11-11 07:12] LABS: CARBON DIOXIDE 28 mmol/L (21-32); CHLORIDE 103 mmol/L (98-107); CREATININE 0.5 mg/dL (0.6-1.3); GLUCOSE 108 mg/dL (74-106); PHOSPHOROUS 4.7 mg/dL (2.5-4.9); POTASSIUM 3.8 mmol/L (3.5-5.1); UREA NITROGEN, BLOOD 21 mg/dL (7-18)
[2021-11-11] MEDS: CARVEDILOL 3.125 MG TABLET PO SCH ×2 (08:05→20:15)
[2021-11-11] MEDS: APIXABAN 2.5 MG TABLET GT SCH ×2 (08:05→20:15)
[2021-11-11] MEDS: MULTIVITAMINS,THERAPEUTIC TABLET GT SCH (08:17)
[2021-11-11] MEDS: ALLOPURINOL 100 MG TABLET GT SCH (08:17)
[2021-11-11] MEDS: VITAMIN B COMPLEX 1 TABLET GT SCH (08:17)
[2021-11-11 08:34] LABS: BAND % (MANUAL) 6 % (0-10); EOSINOPHILS % (MANUAL) 3 % (0-8); LYMPHOCYTES % (MANUAL) 25 % (20-40); MONOCYTES % (MANUAL) 6 % (2-10); NEUTROPHILS % (MANUAL) 60 % (42-75)
[2021-11-11] MEDS ORDERED: Medication Not On Formulary EA (Multivitamins (Multivitamin) 1 TAB) GT SCH (09:00)
[2021-11-11] MEDS: AMLODIPINE 5 MG TABLET PO SCH (10:29)
[2021-11-11 16:38] VITALS: BP 161/70
[2021-11-11 20:00] VITALS: BP 119/64
[2021-11-11] MEDS: TERAZOSIN 1 MG CAPSULE GT SCH (20:15)
[2021-11-11] MEDS: OSMOLITE 1.2 CAL 1,000 ML LIQUID GT PRN (20:19)
[2021-11-12] MEDS: CEFTRIAXONE 1 G in IV DEXTROSE 5% 50 ML IV SCH (01:51)
[2021-11-12 04:00] VITALS: BP 148/76
--- NOTE | 2021-11-12 05:39 | NUR ---
Pt is alert but aphasic. No distress noted. IV site is intact. GT running ordered feeding, 10cc residual. Morrell draining to gravity. Will endorse to day shift.
[2021-11-12] MEDS: PANTOPRAZOLE ORAL SUSPENSION 40 MG SUSPDR.PKT GT SCH (06:03)
--- NOTE | 2021-11-12 07:30 | NUR ---
RECEIVED PT ON BED WATCHING TV. AOX4. CAN UNDERSTAND WHAT PEOPLE SAYING BUT CAN ON MUMBLE WORDS(EXPRESSIVE APHASIA). ON ROOM AIR. FC IS DRAINING WELL. GT FEEDING WAS OFF FOR 2HRS.
[2021-11-12] MEDS: ALLOPURINOL 100 MG TABLET GT SCH (09:24)
[2021-11-12] MEDS: MULTIVITAMINS,THERAPEUTIC TABLET GT SCH (09:24)
[2021-11-12] MEDS: VITAMIN B COMPLEX 1 TABLET GT SCH (09:24)
[2021-11-12] MEDS: CARVEDILOL 3.125 MG TABLET PO SCH (09:25)
[2021-11-12] MEDS: AMLODIPINE 5 MG TABLET PO SCH (09:26)
[2021-11-12] MEDS: APIXABAN 2.5 MG TABLET GT SCH (09:37)
[2021-11-12] MEDS ORDERED: CEFTAZIDIME 1 G in IV DEXTROSE 5% 50 ML IV SCH (11:00)
--- NOTE | 2021-11-12 12:00 | NUR ---
MD DISCHARGE PT. [facility]SE[facility] POOL WAS NOTIFIED WITH THE PLAN.
[2021-11-12 12:04] VITALS: BP 154/80
--- NOTE | 2021-11-12 13:18 | NUR ---
PT STILL COVID POSITIVE PER LAB
--- NOTE | 2021-11-12 13:40 | NUR ---
REPORT GIVEN TO ROC ROMANO OF [facility].
[2021-11-12] MEDS ORDERED: GLUCERNA SHAKE 237 ML CAN PO SCH (14:00)
[2021-11-12] MEDS ORDERED: CARVEDILOL 3.125 MG TABLET GT ONE (14:39)
[2021-11-12] MEDS ORDERED: ACID1TAB4 GT (14:43)
[2021-11-12] MEDS ORDERED: CARV6.25 GT (14:43)
[2021-11-12] MEDS ORDERED: CEFT1VIA55 IV (14:43)
[2021-11-12] MEDS ORDERED: TERA1CAP4 GT (14:43)
[2021-11-12] MEDS ORDERED: ATOR10TA PO (14:43)
--- NOTE | 2021-11-12 15:00 | NUR ---
CHANGED MO CATH WITH 16FR
[2021-11-12 16:25] VITALS: BP 144/100
--- NOTE | 2021-11-12 17:50 | NUR ---
PT WAS DISCHARGE. 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 ALL BELONGINGS ACCOUNTED FOR. REMOVED IV ACCESS. PT WAS HAPPY TO GO BACK TO HIS PLACE
[2021-11-13] MEDS ORDERED: EPOETIN ALFA-EPBX 10,000 UNIT/ML VIAL SQ SCH (09:00)
== END 2021-11-12 17:45 | DRG 871 ==
LOC: ER 20:31 → MEDSURG3 11-09 03:25 → TELE3 11-09 04:14 → MEDSURG3 11-12 01:14
PROVIDERS: ADMIT Internal Medicine; ATTEND Internal Medicine
DX: A41.59 Other Gram-negative sepsis (principal); E43 Unspecified severe protein-calorie malnutrition; G92.8 Other toxic encephalopathy; U07.1 COVID-19; N39.0 Urinary tract infection, site not specified; I69.351 Hemiplegia and hemiparesis following cerebral infarction affecting right dominant side; I31.3 Pericardial effusion (noninflammatory); D62 Acute posthemorrhagic anemia; D68.59 Other primary thrombophilia; N02.9 Recurrent and persistent hematuria with unspecified morphologic changes; R65.20 Severe sepsis without septic shock; I69.320 Aphasia following cerebral infarction; B96.1 Klebsiella pneumoniae [K. pneumoniae] as the cause of diseases classified elsewhere; Z93.1 Gastrostomy status; I69.391 Dysphagia following cerebral infarction; R13.10 Dysphagia, unspecified; Z79.01 Long term (current) use of anticoagulants; F01.50 Vascular dementia, unspecified severity, without behavioral disturbance, psychotic disturbance, mood disturbance, and anxiety; Z79.02 Long term (current) use of antithrombotics/antiplatelets; Z88.6 Allergy status to analgesic agent; Z91.041 Radiographic dye allergy status; Z91.018 Allergy to other foods; N40.0 Benign prostatic hyperplasia without lower urinary tract symptoms; I48.91 Unspecified atrial fibrillation; R09.02 Hypoxemia; I11.0 Hypertensive heart disease with heart failure; I50.9 Heart failure, unspecified; E78.5 Hyperlipidemia, unspecified; Z79.899 Other long term (current) drug therapy
CPT/HCPCS: 36415; 70030-TC; 71045; 83550; 83735; 84100; 84443; 85025; 85610; 86140; 87077; 87086; A4663; C1758; G0378; J0696; J0713; J0885; J8499